=== PATIENT | male | born 1965 ===

== ENCOUNTER 2021-05-27 06:43 | Day surgery (SDC) | payer OTHER ==
[~2021-05-27 06:43] MED LIST: CRESTOR5 MG PO; DIOVAN PO; HORIZANT600 MG PO; LOVAZA PO; METFORMIN HCL500 MG PO
== END 2021-05-27 14:20 | disposition home or self-care (01) ==
LOC: CIR.AMB 06:43
PROVIDERS: ATTEND Orthopaedic Surgery Hand Surgery
DX: D21.12 Benign neoplasm of connective and other soft tissue of left upper limb, including shoulder (principal); M19.042 Primary osteoarthritis, left hand; L92.8 Other granulomatous disorders of the skin and subcutaneous tissue; Z20.822 Contact with and (suspected) exposure to COVID-19

== ENCOUNTER 2021-11-11 06:07 | Day surgery (SDC) | payer OTHER ==
[~2021-11-11 06:07] MED LIST changes: +TAMS0.4C PO
== END 2021-11-11 11:35 | disposition home or self-care (01) ==
LOC: CIR.AMB 06:07
PROVIDERS: ATTEND Orthopaedic Surgery Hand Surgery
DX: M19.042 Primary osteoarthritis, left hand (principal); I10 Essential (primary) hypertension; J45.909 Unspecified asthma, uncomplicated; G47.33 Obstructive sleep apnea (adult) (pediatric); F12.90 Cannabis use, unspecified, uncomplicated; E11.9 Type 2 diabetes mellitus without complications